=== PATIENT | female | born 1965 | race Caucasian/White ===

== ENCOUNTER 2018-01-15 18:55 | Emergency (ER) | payer OTHER ==
[2018-01-15 19:10] VITALS: TEMP 98.3; BMI 26.0
[2018-01-15] MEDS ORDERED: ONDANSETRON 4 MG/2 ML VIAL IVPUSH ONE (19:39)
[2018-01-15] MEDS ORDERED: SODIUM CHLORIDE 1,000 ML IV STA (19:39)
--- NOTE | 2018-01-15 19:40 | PDOC ---
History of Present Illness - General History Source: Patient Exam Limitations: No Limitations - History of Present Illness Initial Comments: 01/15/18 19:53 The patient is a 52 year old female with no significant past medical history who presents to the ER with diffuse abdominal pain, diarrhea, and nausea for the past three days. Patient reports that three days ago she ate fish and noticed the onset of her symptoms two hours later. Patient describes her abdominal pain as diffuse and intermittent with associated episodes of watery stool, approximately 8 times a day. Patient denies any blood in her stool. Patient reports she is unable to tolerate food or drink by mouth secondary to her constant nausea. Patient denies recent travel or sick contact. The patient denies chest pain, shortness of breath, headache, and dizziness. Denies fever, chills, vomit, diarrhea, and constipation. Denies dysuria, frequency, urgency, and hematuria. Allergies: NKA Past surgical history: abdominoplasty two years ago Social history: No reported alcohol, drug, or cigarette use. <Elizabeth Walton - Last Filed: 01/15/18 19:53> <Sharon Dior - Last Filed: 01/16/18 04:27> - General Chief Complaint: Pain Stated Complaint: NAUSEA LOOSE STOOL ABDOMINAL APIN Time Seen by Provider: 01/15/18 19:25 Past History <Elizabeth Walton - Last Filed: 01/15/18 19:53> - Past Medical History COPD: No Psychiatric Problems: Yes (DEPRESSION) - Suicide/Smoking/Psychosocial Hx Smoking History: Never smoked Have you smoked in the past 12 months: No Information on smoking cessation initiated: No Hx Alcohol Use: No Drug/Substance Use Hx: No Substance Use Type: None <Sharon Dior - Last Filed: 01/16/18 04:27> - Past Medical History Allergies/Adverse Reactions: Allergies Allergy/AdvReac Type Severity Reaction Status Date / Time No Known Allergies Allergy Verified 01/15/18 18:58 Home Medications: Ambulatory Orders Ondansetron HCl [Zofran] 4 mg PO PRN 01/15/18 Ondansetron [Zofran Odt -] 4 mg SL TID PRN #12 od.tablet 01/16/18 Pantoprazole Sodium [Protonix -] 20 mg PO DAILY #20 tablet.ec 09/27/18 Review of Systems - Review of Systems Able to Perform ROS?: Yes Comments:: 01/15/18 19:40 All systems are reviewed and negative except as noted in the HPI <Elizabeth Walton - Last Filed: 01/15/18 19:53> *Physical Exam - Vital Signs Last Vital Signs Temp Pulse Resp BP Pulse Ox 98.3 F 71 16 120/76 100 01/15/18 18:57 01/15/18 18:57 01/15/18 18:57 01/15/18 18:57 01/15/18 18:57 - Physical Exam Comments: 01/15/18 19:40 GENERAL: Awake, alert, and fully oriented, in no acute distress HEAD: No signs of trauma EYES: PERRLA, EOMI, sclera anicteric, conjunctiva clear ENT: Auricles normal inspection, hearing grossly normal, nares patent, oropharynx clear without exudates. (+) Dry mucus membranes. NECK: Normal ROM, supple, no lymphadenopathy, JVD, or masses LUNGS: Breath sounds equal, clear to auscultation bilaterally. No wheezes, and no crackles HEART: Regular rate and rhythm, normal S1 and S2, no murmurs, rubs or gallops ABDOMEN: (+) Mild generalized tenderness without rebound or guarding. (+) Hyperactive bowel sounds. Soft, No masses. EXTREMITIES: Normal range of motion, no edema. No clubbing or cyanosis. No cords, erythema, or tenderness NEUROLOGICAL: Cranial nerves II through XII grossly intact. Normal speech, normal gait SKIN: Warm, Dry, normal turgor, no rashes or lesions noted. <Elizabeth Walton - Last Filed: 01/15/18 19:53> - Vital Signs Last Vital Signs Temp Pulse Resp BP Pulse Ox 98.3 F 71 16 120/76 100 01/15/18 18:57 01/15/18 18:57 01/15/18 18:57 01/15/18 18:57 01/15/18 18:57 <Sharon Dior - Last Filed: 01/16/18 04:27> ED Treatment Course - LABORATORY CBC & Chemistry Diagram: 01/15/18 19:56 01/15/18 19:56 <Sharon Dior - Last Filed: 01/16/18 04:27> Progress Note - Progress Note Progress Note: Documentation has been prepared under my direction and personally reviewed by me in its entirety. I attest that this documented accurately reflects all work, treatment, procedures and medical decision making performed by me. <Sharon Dior - Last Filed: 01/16/18 04:27> Medical Decision Making - Medical Decision Making As noted above, this 52-year-old woman presents with 4 day history of diarrhea accompanied by nausea (no vomiting). Exam as noted. IV access was obtained, patient received a liter normal saline along with 4 mg of Zofran IV. CBC/chemistry profile/urinalysis sent. Urinalysis showed 3+ blood on dipstick with 50 red blood cells per high-power field. There were few bacteria/WBCs. Urine culture and sensitivity sent. CBC and chemistry profile essentially normal. Patient felt some residual discomfort/nausea in having the epigastrium region and Protonix 40 mg IV administered. Patient has no episodes of loose stool during her time in the emergency room. Because of residual nausea, Zofran 4 mg IV additional dose administered. Patient is discharged feeling somewhat better with instructions to continue clear liquids and advance to solid diet as tolerated. Patient was instructed on elements as diet which could help with resolution of diarrhea. She should return if she has vomiting/increased abdominal pain or fever. Otherwise, she should follow-up with her doctor within the next 5 days. <Sharon Dior - Last Filed: 01/16/18 04:27> *DC/Admit/Observation/Transfer - Attestations Scribe Attestion: 01/15/18 19:54 Documentation prepared by Elizabeth Walton, acting as medical pathology teacher for Sharon Dior MD. <Elizabeth Walton - Last Filed: 01/15/18 19:53> <Sharon Dior - Last Filed: 01/16/18 04:27> Diagnosis at time of Disposition: Gastroenteritis - Discharge Dispostion Disposition: HOME Condition at time of disposition: Stable - Prescriptions Prescriptions: Ondansetron [Zofran Odt -] 4 mg SL TID PRN #12 od.tablet PRN Reason: Nausea Pantoprazole Sodium [Protonix -] 20 mg PO DAILY #20 tablet.ec - Patient Instructions Printed Discharge Instructions: Diarrhea Additional Instructions: Clear liquids, advance diet as tolerated to rice/bread/bananas,etc Imodium or Pepto-Bismol after each loose stool Zofran ODT 4 mg up to 3 times a day as needed for nausea/vomiting Protonix 20 mg daily for the next 2 weeks Return to ER if you have severe vomiting or abdominal pain Follow-up with your doctor within the next 5 days, especially if you have persistent diarrhea
[2018-01-15] MEDS ORDERED: ONDANSETRON 4 MG/2 ML VIAL ONE ×2 (19:58→23:58)
[2018-01-15 20:06] LABS: HCG,QUALITATIVE URINE Negative
[2018-01-15 20:08] LABS: BASO % 1.3 % (0-2.0); EOS % 2.5 % (0-4.5); HEMATOCRIT 39.2 % (32.4-45.2); HEMOGLOBIN 12.9 GM/dl (10.7-15.3); LYMPH % 34.5 % (8-40); MCH 27.6 pg (25.7-33.7); MCHC 32.9 g/dl (32.0-36.0); MEAN CELL VOLUME 83.8 fl (80-96); MEAN PLT VOLUME 8.1 fl (7.5-11.1); MONO % 10.3 % (3.8-10.2); NEUT % 51.4 % (42.8-82.8); PLATELET COUNT 304 K/MM3 (134-434); RBC 4.68 M/mm3 (3.60-5.2); RDW 15.6 % (11.6-15.6)
[2018-01-15 20:09] LABS: PH,URINE 5.5 (4.5-8); URINE APPEARANCE Clear; URINE BILIRUBIN Negative (NEGATIVE); URINE COLOR Yellow; URINE GLUCOSE (UA) Negative (NEGATIVE); URINE KETONE Trace (NEGATIVE); URINE LEUK ESTERASE Negative (NEGATIVE); URINE NITRITE Negative (NEGATIVE); URINE PROTEIN Trace (NEGATIVE); URINE UROBILINOGEN 0.2 (0.2-1.0)
[2018-01-15 20:22] LABS: ALBUMIN 4.2 g/dl (3.5-5.0); ALK PHOS 47 U/L (32-92); ANION GAP 6 MMOL/L (8-16); BLOOD UREA NITROGEN 12 mg/dl (7-18); CALCIUM 8.8 mg/dl (8.4-10.2); CHLORIDE 109 mmol/L (98-107); CO2 24 mmol/L (22-28); CREATININE 0.9 mg/dl (0.6-1.3); GLUCOSE,RANDOM 101 mg/dl (74-106); POTASSIUM 4.1 mmol/L (3.5-5.1); SGOT/AST 26 U/L (10-42); SGPT/ALT 19 U/L (10-40); SODIUM 139 mmol/L (136-145)
[2018-01-15 20:27] LABS: URINE RBC >50 /hpf (0-3); URINE WBC 0-2 (0-5)
[2018-01-15 20:28] LABS: URINE BACTERIA FEW /hpf (NEGATIVE); URINE MUCUS 1+
[2018-01-15] MEDS ORDERED: PANTOPRAZOLE SODIUM 40 MG VIAL IVPB ONE (21:56)
[2018-01-15] MEDS ORDERED: PANTOPRAZOLE SODIUM 40 MG VIAL ONE (22:09)
[2018-01-15 22:20] LABS: LIPASE 57 U/L (73-393)
[2018-01-15] MEDS ORDERED: ONDANSETRON 4 MG/2 ML VIAL IVPB ONE (23:55)
[2018-01-16 00:43] VITALS: BP 119/70; PULSE 74
== END 2018-01-16 00:45 | disposition home or self-care (01) ==
LOC: FER 18:55
PROC: 3E033GC Introduction of Other Therapeutic Substance into Peripheral Vein, Percutaneous Approach (ICD-10-PCS; principal; 2018-01-15)
PROC: 3E0337Z Introduction of Electrolytic and Water Balance Substance into Peripheral Vein, Percutaneous Approach (ICD-10-PCS; 2018-01-15)
DX: K52.9 Noninfective gastroenteritis and colitis, unspecified (principal); F32.9 Major depressive disorder, single episode, unspecified
CPT/HCPCS: 36415; 80053; 81003; 81015; 83690; 84703; 85025; 99283-25; J7030

== ENCOUNTER 2019-03-19 11:21 | Emergency (ER) | payer OTHER ==
[2019-03-19 11:42] VITALS: BMI 26.5
[2019-03-19] MEDS ORDERED: SODIUM CHLORIDE 1,000 ML IV STA (11:49)
[2019-03-19] MEDS ORDERED: FAMOTIDINE 20 MG/50 ML IVPB 20 MG/50 ML MG IVPB ONE ×3 (11:49→12:02)
[2019-03-19] MEDS ORDERED: ONDANSETRON 4 MG/2 ML VIAL IVPB ONE (11:49)
[2019-03-19] MEDS ORDERED: ONDANSETRON 4 MG/2 ML VIAL ONE (11:54)
--- NOTE | 2019-03-19 12:04 | PDOC ---
History of Present Illness - General Chief Complaint: Nausea Stated Complaint: ABD PAIN Time Seen by Provider: 03/19/19 11:31 - History of Present Illness Initial Comments: 03/19/19 12:02 Chief complaint: Nausea, abdominal pain HPI: Patient developed nausea and generalized abdominal pain last night after eating dinner. She tried to make herself vomit, but was unable. No diarrhea with a normal bowel movement this morning. Nausea and crampy pain has persisted. Pain is not localized. Review of systems: Patient still has regular menses, but does not recall her last period. No dysuria frequency urgency hesitancy or hematuria. No hematemesis melena or bloody stool. No headache, fever/chills, URI symptoms, sore throat, cough, chest pain, shortness of breath, visual or focal neurologic symptoms, lightheadedness, dizziness, vertigo. Remainder of systems reviewed and negative Past medical history: Anxiety and depression. Has been on medication, which she stopped taking about 1 week ago, she being unable to say why. No other medical surgical illnesses. Social history: Lives with family, denies feeling anxious or depressed recently , no tobacco alcohol or drugs. 3-year-old child at home had a gastrointestinal illness 2 days ago. Family history: Reviewed and noncontributory Physical exam: Alert and oriented well-developed well-nourished no acute distress cooperative. Patient states that she has abdominal pain but does not appear uncomfortable. She is not retching or vomiting Afebrile, vital signs normal No pallor or icterus. PERRLA, fundi benign, ENT clear Neck supple without bruit mass or nodes Chest clear to PNA, full breath sounds bilaterally, no wheezes rales or rhonchi CV S1-S2 distant without murmur rub or gallop pulses full and symmetric no JVD or edema no bruits Abdomen nondistended. Bowel sounds normal. Soft without mass organomegaly. There is mild diffuse tenderness to deep palpation throughout the abdomen, as indicated by the patient, but palpation does not seem to elicit notable discomfort and there is no guarding or rebound. Extremities no CCE Skin clear, no rash, adequate turgor and wet mucous membranes Neurological C2 to 12 intact. No focal deficits. Gait stable and unimpaired Impression: Most likely this is early viral gastroenteritis, contracted from a similarly ill toddler at home. However, the patient's symptoms appear mild and there is no diarrhea. There is also the possibility that this is due to anxiety/depression and/or discontinuation of her psychotropic medication 1 week ago. An atypical cardiac presentation is unlikely but also possible. Plan: EKG and enzymes, CBC and chemistries, urinalysis, intravenous fluids and antiemetics, further evaluation and treatment depending on results of tests and response to therapy. Past History - Past Medical History Allergies/Adverse Reactions: Allergies Allergy/AdvReac Type Severity Reaction Status Date / Time No Known Allergies Allergy Verified 03/19/19 11:35 Home Medications: Ambulatory Orders Bupropion HCl [Bupropion Xl] 300 mg PO DAILY 03/19/19 Buspirone HCl [Buspar -] 10 mg PO DAILY 03/19/19 Escitalopram Oxalate [Lexapro -] 20 mg PO DAILY 03/19/19 Famotidine [Pepcid] 40 mg PO DAILY #10 tablet 03/19/19 Ondansetron [Zofran *Odt*] 4 - 8 mg SL TID PRN #15 od.tablet 03/19/19 COPD: No Psychiatric Problems: Yes (DEPRESSION) - Psycho Social/Smoking Cessation Hx Smoking History: Never smoked Have you smoked in the past 12 months: No Hx Alcohol Use: No Drug/Substance Use Hx: No Substance Use Type: None *Physical Exam - Vital Signs Last Vital Signs Temp Pulse Resp BP Pulse Ox 99.3 F 100 H 16 128/78 98 03/19/19 11:22 03/19/19 11:22 03/19/19 11:22 03/19/19 11:22 03/19/19 11:22 ED Treatment Course - LABORATORY CBC & Chemistry Diagram: 03/19/19 12:03 03/19/19 12:49 Medical Decision Making - Medical Decision Making 03/19/19 12:17 EKG shows normal sinus rhythm 89/min with mild sinus arrhythmia. There are nonspecific T wave abnormalities in the inferior lateral leads which are primarily a flattening of the normal T wave contour. There are no ST elevations or depressions. No prior EKG is available for comparison 03/19/19 14:27 Cardiac enzymes negative 03/19/19 14:27 Laboratories show a normal white count, no significant abnormalities in the rest of the CBC or chemistries. Urinalysis shows no sign of UTI. Patient now has temperature of 100.2. However, nausea and pain have resolved. We will continue Tylenol, Zofran, and Pepcid. Clear liquid diet. Follow-up if symptoms worsen ER or primary physician Fully ambulatory and in no significant distress at discharge with family to follow-up as directed Discharge - Discharge Information Problems reviewed: Yes Clinical Impression/Diagnosis: Viral gastroenteritis Condition: Improved Disposition: HOME - Admission No - Additional Discharge Information Prescriptions: Famotidine [Pepcid] 40 mg PO DAILY #10 tablet Ondansetron [Zofran *Odt*] 4 - 8 mg SL TID PRN #15 od.tablet PRN Reason: Nausea And/Or Vomiting - Follow up/Referral Referrals: Randal Melvin MD [Primary Care Provider] - 2 Days - Patient Discharge Instructions Patient Printed Discharge Instructions: DI for Viral Gastroenteritis -- Adult Additional Instructions: Clear liquid diet until symptoms improve. Tylenol for fever, body aches, or pain. Zofran for nausea. Pepcid for stomach discomfort Return to ER if symptoms worsen or additional symptoms develop. Otherwise follow-up primary physician 2 to 3 days. - Post Discharge Activity
[2019-03-19 12:18] LABS: BASO % 0.6 % (0-2.0); EOS % 0.3 % (0-4.5); HEMATOCRIT 39.9 % (32.4-45.2); HEMOGLOBIN 12.3 GM/dl (10.7-15.3); MCH 23.7 pg (25.7-33.7); MCHC 30.8 g/dl (32.0-36.0); MEAN CELL VOLUME 76.9 fl (80-96); MONO % 6.5 % (3.8-10.2); NEUT % 86.6 % (42.8-82.8); PLATELET COUNT 245 K/MM3 (134-434); RBC 5.19 M/mm3 (3.60-5.2); RDW 18.5 % (11.6-15.6); WHITE BLOOD COUNT 5.9 K/mm3 (4.0-10.8)
[2019-03-19 12:20] LABS: ADD RBC MORPHOLOGY YES
[2019-03-19 13:15] LABS: ALBUMIN 3.8 g/dl (3.4-5.0); BILIRUBIN,TOTAL 0.7 mg/dl (0.2-1); CALCIUM 8.3 mg/dl (8.5-10); CREATININE 0.9 mg/dl (0.55-1.3); POTASSIUM 3.7 mmol/L (3.5-5.1); TOT PROT 6.5 g/dl (6.4-8.2)
[2019-03-19 14:00] LABS: ANISOCYTOSIS 2+; PLATELET ESTIMATE ADEQUATE
[2019-03-19 14:07] LABS: EPITHELIAL CELLS RARE /hpf
[2019-03-19 14:15] VITALS: BP 106/70; PULSE 95; TEMP 100.2
[2019-03-19] MEDS ORDERED: ACETAMINOPHEN 325 MG TABLET (FP) PO ONE (14:23)
[2019-03-19] MEDS ORDERED: ACETAMINOPHEN 325 MG TABLET (FP) ONE (14:23)
[2019-03-19] MEDS ORDERED: ONDANSETRON *ODT* 4 MG TABLET ONE (14:23)
[2019-03-19] MEDS ORDERED: ONDANSETRON *ODT* 4 MG TABLET SL ONE (14:24)
--- NOTE | 2019-03-20 14:08 | EKG ---
Test Reason : Blood Pressure : / mmHG Vent. Rate : 089 BPM Atrial Rate : 089 BPM P-R Int : 116 ms QRS Dur : 078 ms QT Int : 390 ms P-R-T Axes : 053 034 -18 degrees QTc Int : 474 ms NORMAL SINUS RHYTHM WITH SINUS ARRHYTHMIA NONSPECIFIC T WAVE ABNORMALITY ABNORMAL ECG NO PREVIOUS ECGS AVAILABLE Confirmed by MARIA ARITA MD ([id number]) on 03/20/2019 2:08:27 PM Referred By: Physician Emergency Dept Confirmed By:MARIA ARITA MD
== END 2019-03-19 14:48 | disposition home or self-care (01) ==
LOC: FER 11:21
PROC: 3E033GC Introduction of Other Therapeutic Substance into Peripheral Vein, Percutaneous Approach (ICD-10-PCS; principal; 2019-03-19)
PROC: 3E033GC Introduction of Other Therapeutic Substance into Peripheral Vein, Percutaneous Approach (ICD-10-PCS; 2019-03-19)
DX: A08.4 Viral intestinal infection, unspecified (principal)
CPT/HCPCS: 36415; 80053; 81003; 81015; 82550; 84484; 84703; 85025; 93005; 99284-25; J7030; Q0162

== ENCOUNTER 2021-04-27 22:50 | Emergency (ER) | payer OTHER ==
[2021-04-27 23:07] VITALS: BP 162/93; PULSE 74; TEMP 99.1; BMI 26.5
[2021-04-27] MEDS ORDERED: KETOROLAC TROMETHAMINE 30 MG/1 ML VIAL IM ONE (23:14)
[2021-04-27] MEDS ORDERED: DEXAMETHASONE 4 MG TABLET (FP) PO ONE (23:14)
[2021-04-27] MEDS ORDERED: KETOROLAC TROMETHAMINE 30 MG/1 ML VIAL ONE (23:21)
[2021-04-27] MEDS ORDERED: DEXAMETHASONE 4 MG TABLET (FP) ONE (23:22)
[2021-04-28 00:43] LABS: HEMOGLOBIN 14.5 GM/dL (10.7-15.3); MCH 29.9 pg (25.7-33.7); MCHC 33.6 g/dl (32.0-36.0); MEAN CELL VOLUME 88.9 fl (80-96); MEAN PLT VOLUME 7.6 fl (7.5-11.1); PLATELET COUNT 276 10^3/uL (134-434); RBC 4.83 M/mm3 (3.60-5.2); RDW 14.4 % (11.6-15.6); WHITE BLOOD COUNT 7.5 K/mm3 (4.0-10.0)
[2021-04-28 01:02] LABS: ALBUMIN 3.9 g/dl (3.4-5.0); BLOOD UREA NITROGEN 18.5 mg/dL (7-18); CALCIUM 9.6 mg/dL (8.5-10.1)
[2021-04-28 01:05] LABS: CREATININE 0.9 mg/dL (0.55-1.3)
[2021-04-28 01:07] LABS: BILIRUBIN,TOTAL 0.2 mg/dL (0.2-1); TOT PROT 7.2 g/dl (6.4-8.2)
== END 2021-04-28 01:20 | disposition home or self-care (01) ==
LOC: FER 22:50
PROC: 3E023GC Introduction of Other Therapeutic Substance into Muscle, Percutaneous Approach (ICD-10-PCS; principal; 2021-04-27)
DX: R07.0 Pain in throat (principal)
CPT/HCPCS: 36415; 70490-TC; 80053; 85027; 86769; 87651; 87804; 99284-25

== ENCOUNTER 2023-09-16 15:02 | Observation (INO) | payer OTHER ==
[2023-09-16] MEDS: ASPIRIN 81 MG CHEWABLE TABLETS PO ONE (16:02)
[2023-09-16] MEDS ORDERED: ASPIRIN 81 MG CHEWABLE TABLETS ONE (16:02)
[2023-09-16 17:00] LABS: HEMATOCRIT 44.8 % (32.4-45.2); MCH 29.7 pg (25.7-33.7); MCHC 33.5 g/dl (32.0-36.0); MEAN CELL VOLUME 88.6 fl (80-96); MEAN PLT VOLUME 9.3 fl (7.5-11.1); PLATELET COUNT 305.1 10^3/uL (134-434); RBC 5.06 10^6/uL (3.60-5.2); RDW 15.2 % (11.6-15.6); WHITE BLOOD COUNT 6.3 10^3/uL (4.0-10.8)
[2023-09-16 17:15] LABS: ALBUMIN 4.4 g/dl (3.4-5.0); BILIRUBIN,TOTAL 0.4 mg/dl (0.2-1); CALCIUM 9.7 mg/dl (8.5-10.1); CREATININE 0.8 mg/dl (0.6-1.3); MAGNESIUM 2.1 mg/dL (1.8-2.4); TOT PROT 6.8 g/dl (6.4-8.2)
[2023-09-16 17:21] LABS: PLATELET ESTIMATE ADEQUATE
[2023-09-16] MEDS ORDERED: DOCUSATE SODIUM 100 MG CAPSULE (FP) PO PRN (20:50)
[2023-09-16] MEDS ORDERED: ACETAMINOPHEN 325 MG TABLET (FP) PO PRN (20:50)
[2023-09-16 21:57] VITALS: BMI 30.6
[2023-09-17] MEDS: ESCITALOPRAM OXALATE 20 MG TABLET PO SCH (00:05)
[2023-09-17] MEDS: busPIRone HCL 10 MG TABLET (FP) PO SCH (00:06)
[2023-09-17 09:02] LABS: ANION GAP 6 mmol/L (4-13); CALCIUM 9.9 mg/dl (8.5-10.1); CHLORIDE 108 mmol/L (98-107); CO2 29 mmol/L (21-32); CREATININE 0.8 mg/dl (0.6-1.3); GLUCOSE,RANDOM 89 mg/dl (74-106); POTASSIUM 4.5 mmol/L (3.5-5.1); SODIUM 143 mmol/L (136-145)
[2023-09-17 09:06] LABS: BASO % 0.9 % (0-2.0); EOS % 3.6 % (0-4.5); HEMATOCRIT 40.5 % (32.4-45.2); HEMOGLOBIN 14.1 GM/dL (10.7-15.3); LYMPH % 50.9 % (8-40); MCH 30.2 pg (25.7-33.7); MCHC 34.9 g/dl (32.0-36.0); MEAN CELL VOLUME 86.4 fl (80-96); MEAN PLT VOLUME 7.8 fl (7.5-11.1); MONO % 10.1 % (3.8-10.2); NEUT % 34.5 % (42.8-82.8); PLATELET COUNT 206 10^3/uL (134-434); RBC 4.69 M/mm3 (3.60-5.2); RDW 14.6 % (11.6-15.6); WHITE BLOOD COUNT 4.5 K/mm3 (4.0-10.0)
[2023-09-17] MEDS ORDERED: metoPROLOL SUCCINATE 25 MG TAB.SR.24H (FP) PO SCH ×2 (10:00→22:00)
[2023-09-17] MEDS ORDERED: busPIRone HCL 10 MG TABLET (FP) PO SCH (10:00)
[2023-09-17] MEDS ORDERED: ESCITALOPRAM OXALATE 20 MG TABLET PO SCH (10:00)
[2023-09-17 15:55] VITALS: BP 105/60; PULSE 68; RESP 17; TEMP 98.7
[2023-09-17] MEDS ORDERED: busPIRone HCL 5 MG TABLET PO SCH (22:00)
== END 2023-09-17 18:38 | disposition home or self-care (01) ==
LOC: FER 15:02 → FM/S 17:23
PROVIDERS: ADMIT Internal Medicine; ATTEND Internal Medicine
DX: R55 Syncope and collapse (principal); R07.9 Chest pain, unspecified; I10 Essential (primary) hypertension; F41.8 Other specified anxiety disorders; R42 Dizziness and giddiness
CPT/HCPCS: 36415; 70450-TC; 71045-TC-FY; 80048; 80053; 83735; 84100; 84436; 84443; 84484; 85025; 85027; 93005; 93306-TC; 93880-TC; 97116-GP; 97161-GP; 99285-25; G0378